=== PATIENT | female | born 1975 | race African-American/Black ===

== ENCOUNTER 2022-07-12 21:20 | Emergency (ER) | payer OTHER, SELFPAY ==
[~2022-07-12 21:20] MED LIST: Iopamidol 370 76% 100 ML VIAL ONE
[2022-07-12] MEDS ORDERED: Ketorolac Tromethamine 30 MG/ML VIAL ONE (22:37)
[2022-07-12 22:49] LABS: Bilirubin Negative (Negative); Blood, Urine Small (Negative); Clarity Clear (Clear); Glucose, Urine (Dipstick) Negative (Negative); Ketone, Urine Negative (Negative); Leukocyte Negative (Negative); Nitrite Negative (Negative); Protein, Urine (Dipstick) Negative (Neg-Trace); Specific Gravity, Urine 1.025 (1.005-1.030); Urobilinogen 0.2 mg/dL (Less than 2); pH, Urine 7.5 (5.0-9.0)
[2022-07-12 22:54] LABS: Bacteria/HPF Rare-Few HPF (None Seen); RBC/HPF 0-3 HPF (0-3); Squamous Epithelial 21-50 HPF (0-3); Transitional Epithelial 0-3 HPF (None Seen); WBC/HPF 0-3 HPF (0-3)
[2022-07-12 23:04] LABS: #Basophils 0.1 thou/uL (0.0-0.2); #Eosinphils 0.2 thou/uL (0.0-0.7); #Lymphocytes 0.9 thou/uL (1.20-3.40); #Monocytes 0.5 thou/uL (0.11-0.59); #Neutrophils 6.1 thou/uL (1.40-6.50); %Basophils 0.8 % (0.0-1.0); %Eosinophils 2.5 % (0.0-10.0); %Lymphocytes 11.3 % (21.0-51.0); %Monocytes 5.8 % (0.0-10.0); %Neutrophils 79.7 % (42.0-75.0); Hypochromia SLIGHT = 6-15 cells (100X) (0-5/hpf); MDiff Complete? YES; Mean Corpuscular HGB CONC 29.9 g/dL (32.0-36.0); Mean Corpuscular Hemoglobin 20.2 pg (27.0-31.0); Mean Corpuscular Volume 67.5 fl (78.0-98.0); Mean Platelet Volume 12.7 fL (7.4-10.4); Microcytosis MODERATE=15-30 cells (100X) (0-5/hpf); Platelet Count 169 10x3/uL (130-400); RBC Distribution Width 18.5 % (11.5-14.5); Red Blood Cell (RBC) Count 3.95 mill/uL (4.20-5.40); Stomatocytes SLIGHT = 2-5 cells (100X) (0-1/hpf); White Blood Cell (WBC) Count 7.7 10x3/uL (4.8-10.8)
[2022-07-12 23:06] LABS: ALT (SGPT) 10 U/L (8-55); AST (SGOT) 15 U/L (5-34); Albumin 3.8 g/dL (3.5-5.0); Alkaline Phosphatase 68 U/L (40-110); Anion Gap 12 mmol/L (10-20); BUN (Urea Nitrogen) 9 mg/dL (7.0-18.7); Bilirubin, Total 0.4 mg/dL (0.2-1.2); Calc. Creatinine Clearance 0 mL/min (70-130); Carbon Dioxide 23 mmol/L (22-29); Chloride 111 mmol/L (98-107); Estimated GFR 87; Globulin 2.6 g/dL (2.4-3.5); Glucose 96 mg/dL (70-105); Lipase 22 U/L (8-78); Potassium 3.6 mmol/L (3.5-5.1); Protein, Total 6.4 g/dL (6.0-8.3); Sodium 142 mmol/L (136-145)
== END 2022-07-13 00:27 | disposition home or self-care (01) ==
LOC: MADERS 21:20
DX: D25.9 Leiomyoma of uterus, unspecified (principal); D50.0 Iron deficiency anemia secondary to blood loss (chronic); I10 Essential (primary) hypertension
CPT/HCPCS: 74177; 80053; 81003; 81015; 83690; 85025; 87086; 96374; J1885; Q9967

== ENCOUNTER 2022-10-05 01:41 | Emergency (ER) | payer SELFPAY | END 2022-10-05 02:05 | disposition home or self-care (01) | LOC: MADERS 01:41 | DX: A09 Infectious gastroenteritis and colitis, unspecified (principal); I10 Essential (primary) hypertension | CPT/HCPCS: 99283 ==

== ENCOUNTER 2022-10-09 19:15 | Emergency (ER) | payer SELFPAY ==
[2022-10-09] MEDS ORDERED: Ondansetron PF 4 MG/2 ML Vial ONE (19:47)
[2022-10-09] MEDS ORDERED: Sodium Chloride 0.9% 1,000 ML ONE (19:47)
[2022-10-09 20:21] LABS: Anion Gap 14 mmol/L (10-20); BUN (Urea Nitrogen) 7 mg/dL (7.0-18.7); Calc. Creatinine Clearance 0 mL/min (70-130); Carbon Dioxide 20 mmol/L (22-29); Chloride 113 mmol/L (98-107); Potassium 3.1 mmol/L (3.5-5.1); Sodium 144 mmol/L (136-145)
[2022-10-09 20:22] LABS: ALT (SGPT) 9 U/L (8-55); AST (SGOT) 16 U/L (5-34); Albumin 4.1 g/dL (3.5-5.0); Alkaline Phosphatase 63 U/L (40-110); Bilirubin, Total 0.4 mg/dL (0.2-1.2); Calcium 8.9 mg/dL (7.8-10.44); Estimated GFR 86; Globulin 2.7 g/dL (2.4-3.5); Glucose 104 mg/dL (70-105); Lipase 20 U/L (8-78); Protein, Total 6.8 g/dL (6.0-8.3)
[2022-10-09] MEDS ORDERED: Potassium Chloride 20 MEQ TAB ONE (20:29)
[2022-10-09 20:30] LABS: BHCG - Serum Negative (NEGATIVE); Pregs Control Background? CLEAR/WHITE (CLR/WHITE); Pregs Control Bar Appear? YES (CONTROL BAR)
[2022-10-09 20:39] LABS: Band 10 % (5-11); Hemoglobin 5.6 g/dL (12.0-16.0); Hypochromia MODERATE=16-30 cells (100X) (0-5/hpf); Lymphocytes 8 % (21-51); MDiff Complete? YES; Mean Corpuscular HGB CONC 29.6 g/dL (32.0-36.0); Mean Corpuscular Hemoglobin 20.3 pg (27.0-31.0); Mean Corpuscular Volume 68.5 fl (78.0-98.0); Mean Platelet Volume 14.3 fL (7.4-10.4); Microcytosis MODERATE=15-30 cells (100X) (0-5/hpf); Neutrophil 82 % (42-75); Ovalocytes SLIGHT = 2-5 cells (100X) (0-1/hpf); Platelet Count 116 10x3/uL (130-400); Platelet Morphology Comment Appears Adequate; Polychromasia SLIGHT = 2-3 cells (100X) (0-2/hpf); RBC Distribution Width 26.2 % (11.5-14.5); Red Blood Cell (RBC) Count 2.76 mill/uL (4.20-5.40); Reflex for Review?? NO; White Blood Cell (WBC) Count 9.8 10x3/uL (4.8-10.8)
[2022-10-10 00:45] LABS: Hemoglobin 4.9 g/dL (12.0-16.0)
[2022-10-10 11:12] LABS: Transferrin, Serum 337 mg/dL (180-382)
[2022-10-10 11:13] LABS: Iron Binding Capacity, Total 421 mcg/dL (265-497)
== END 2022-10-09 22:42 | disposition short-term general hospital (02) ==
LOC: MADERS 19:15
DX: D64.9 Anemia, unspecified (principal); K52.9 Noninfective gastroenteritis and colitis, unspecified; I10 Essential (primary) hypertension; Z79.899 Other long term (current) drug therapy
CPT/HCPCS: 36430; 74177; 80053; 82728; 83550; 83690; 83735; 84466; 84703; 85014; 85018; 85025; 86850; 86900; 86901; 96374; J2405; J7050; P9016; Q9967

== ENCOUNTER 2022-11-19 23:02 | Emergency (ER) | payer OTHER ==
[2022-11-19] MEDS ORDERED: Amlodipine 5 MG TAB ONE (23:33)
[2022-11-20 00:07] LABS: #Basophils 0.1 thou/uL (0.0-0.2); #Eosinphils 0.1 thou/uL (0.0-0.7); #Lymphocytes 0.9 thou/uL (1.20-3.40); #Monocytes 0.3 thou/uL (0.11-0.59); #Neutrophils 5.5 thou/uL (1.40-6.50); %Basophils 0.7 % (0.0-1.0); %Eosinophils 1.5 % (0.0-10.0); %Lymphocytes 13.3 % (21.0-51.0); %Neutrophils 79.5 % (42.0-75.0); Hemoglobin 5.4 g/dL (12.0-16.0); Mean Corpuscular HGB CONC 29.1 g/dL (32.0-36.0); Mean Corpuscular Hemoglobin 19.7 pg (27.0-31.0); Mean Corpuscular Volume 67.6 fl (78.0-98.0); Platelet Count 311 10x3/uL (130-400); Red Blood Cell (RBC) Count 2.74 mill/uL (4.20-5.40); White Blood Cell (WBC) Count 6.9 10x3/uL (4.8-10.8)
[2022-11-20 00:13] LABS: BHCG - Serum Negative (NEGATIVE); Pregs Control Background? CLEAR/WHITE (CLR/WHITE); Pregs Control Bar Appear? YES (CONTROL BAR)
[2022-11-20 00:25] LABS: ALT (SGPT) 18 U/L (8-55); AST (SGOT) 16 U/L (5-34); Alkaline Phosphatase 63 U/L (40-110); Anion Gap 13 mmol/L (10-20); Bilirubin, Total 0.5 mg/dL (0.2-1.2); Calc. Creatinine Clearance 0 mL/min (70-130); Calcium 8.7 mg/dL (7.8-10.44); Carbon Dioxide 21 mmol/L (22-29); Chloride 114 mmol/L (98-107); Estimated GFR 85; Globulin 1.7 g/dL (2.4-3.5); Glucose 102 mg/dL (70-105); Magnesium 2.1 mg/dL (1.6-2.6); Potassium 3.6 mmol/L (3.5-5.1); Protein, Total 5.7 g/dL (6.0-8.3); Sodium 144 mmol/L (136-145)
[2022-11-20] MEDS ORDERED: hydrALAZINE 20 MG/ML VIAL ONE (00:25)
[2022-11-20 11:03] LABS: BUN (Urea Nitrogen) 15 mg/dL (7.0-18.7)
== END 2022-11-20 02:25 | disposition short-term general hospital (02) ==
LOC: MADERS 23:02
DX: D64.9 Anemia, unspecified (principal); N93.9 Abnormal uterine and vaginal bleeding, unspecified; I10 Essential (primary) hypertension; Z79.899 Other long term (current) drug therapy
CPT/HCPCS: 36430; 70450; 80053; 83735; 84703; 85025; 86850; 86900; 86901; 96374; J0360; P9016

== ENCOUNTER 2023-01-13 23:33 | Emergency (ER) | payer OTHER ==
[2023-01-13] MEDS ORDERED: Ketorolac Tromethamine 30 MG/ML VIAL ONE (23:49)
== END 2023-01-14 00:21 | disposition home or self-care (01) ==
LOC: MADERS 23:33
DX: M17.12 Unilateral primary osteoarthritis, left knee (principal); I10 Essential (primary) hypertension
CPT/HCPCS: 96372; J1885

== ENCOUNTER 2023-02-24 23:22 | Emergency (ER) | payer OTHER ==
[2023-02-25] MEDS ORDERED: Amoxicillin/Potassium Clav 875 MG TAB ONE (00:12)
== END 2023-02-25 00:17 | disposition home or self-care (01) ==
LOC: MADERS 23:22
DX: J01.10 Acute frontal sinusitis, unspecified (principal); I10 Essential (primary) hypertension; Z79.899 Other long term (current) drug therapy
CPT/HCPCS: 99283

== ENCOUNTER 2023-03-16 23:31 | Emergency (ER) | payer OTHER | END 2023-03-17 | disposition home or self-care (01) | LOC: MADERS 23:31 | DX: L98.9 Disorder of the skin and subcutaneous tissue, unspecified (principal); I10 Essential (primary) hypertension | CPT/HCPCS: 99283 ==

== ENCOUNTER 2023-08-04 21:54 | Emergency (ER) | payer OTHER ==
[2023-08-04] MEDS ORDERED: cloNIDine 0.1 MG TAB ONE (22:13)
[2023-08-04] MEDS ORDERED: Amlodipine 5 MG TAB ONE (22:42)
== END 2023-08-04 23:22 | disposition home or self-care (01) ==
LOC: MADERS 21:54
DX: J30.9 Allergic rhinitis, unspecified (principal); I10 Essential (primary) hypertension; Z91.148 Patient's other noncompliance with medication regimen for other reason
CPT/HCPCS: 99283

== ENCOUNTER 2024-04-17 14:17 | Emergency (ER) | payer OTHER | END 2024-04-17 14:50 | disposition home or self-care (01) | LOC: MADERS 14:17 | DX: K08.89 Other specified disorders of teeth and supporting structures (principal); I10 Essential (primary) hypertension; Z79.899 Other long term (current) drug therapy | CPT/HCPCS: 99282 ==

== ENCOUNTER 2025-03-23 18:29 | Emergency (ER) | payer OTHER ==
[2025-03-23] MEDS ORDERED: Losartan 25 MG TAB ONE (19:11)
[2025-03-23] MEDS ORDERED: predniSONE 20 MG TAB ONE (19:11)
== END 2025-03-23 19:18 | disposition home or self-care (01) ==
LOC: MADERS 18:29
DX: J06.9 Acute upper respiratory infection, unspecified (principal); I10 Essential (primary) hypertension; J45.909 Unspecified asthma, uncomplicated; D64.9 Anemia, unspecified; Z91.148 Patient's other noncompliance with medication regimen for other reason; Z79.899 Other long term (current) drug therapy
CPT/HCPCS: 99283; J7512